=== PATIENT | female | born 1930 | race Caucasian/White ===

== ENCOUNTER 2017-11-06 15:00 | Observation (INO) ==
[2017-11-06 16:20] LABS: Basophils % 0.7 %; Eosinophils # 0.8 K/mcL (0.0-0.6); Eosinophils % 14.8 %; Hematocrit 39.8 % (35.3-44.9); Hemoglobin 12.9 g/dL (11.5-15.4); Immature Granulocytes % 0.4 % (0-4); Lymphocytes % 17.8 %; Mean Corpuscular HGB Conc 32.4 g/dL (31.6-35.5); Mean Corpuscular Hemoglobin 30.8 pg (28.0-33.3); Mean Platelet Volume 11.4 fL (9.4-12.4); Monocytes # 0.8 K/mcL (0.0-1.3); Monocytes % 14.8 %; Neutrophils # 2.9 K/mcL (1.6-8.9); Platelet Count 175 K/mcL (140-400); Red Blood Count 4.19 M/mcL (3.82-4.97); Red Cell Distribution Width 12.2 % (11.5-14.5); Segmented Neutrophils % 51.5 %
[2017-11-06 16:40] LABS: BUN/Creatinine Ratio 25 (6-26); Blood Urea Nitrogen 18 mg/dL (8-23); Calcium 9.2 mg/dL (8.6-10.3); Carbon Dioxide 26 mEq/L (23-29); Chloride 101 mEq/L (98-107); Glucose 89 mg/dL (70-105); Osmolality,Calculated 283 (280-300); Potassium 4.2 mEq/L (3.5-5.1); Sodium 136 mEq/L (136-145); eGFR For African Americans > 60 (> 60); eGFR For Non-African Americans > 60 (> 60)
--- NOTE | 2017-11-06 18:47 | Emergency Department Note ---
Disposition Clinical Impression: CHF (congestive heart failure) Qualifiers: Heart failure type: unspecified Heart failure chronicity: acute Qualified Code( s): I50.9 - Heart failure, unspecified Disposition: Admitted As Inpatient Condition: Fair Referrals: Carolann Baker MD [Primary Care Provider] - Forms: ED Satisfaction Letter Time of Disposition: 18:56 Extremity Problem HPI - General Chief complaint: ED Extremity Problem,Nontraumatic Stated complaint: Cellulitis Time Seen by Provider: 11/06/17 18:02 Source: patient Limitations: no limitations Nursing Notes Reviewed: Yes Vital Signs Reviewed: Yes - History of Present Illness HPI Narrative: Bilateral lower extremity edema last several weeks which is constant and was treated with Omnicef without adequate improvement the patient has no history of congestive heart failure. Does have orthopnea. Last echocardiogram several years ago. Patient does not have any chest pain or tightness or discomfort or pressure. Does have constant rhinorrhea nothing new. Some cough. No sneezing. No new blurred vision. No fevers. No blood in the urine or stool. No skin rash or bruising of the skin. Does have some pain bilateral lower extremities. Social history: No smoking or alcohol, is here with her niece who runs the cardiovascular service is here at [facility] Pain Scale: 7 - Related Data Home Medications Medication Instructions Recorded Confirmed Acetaminophen [Tylenol] 500 mg PO Q6HR PRN 04/23/17 05/22/17 Aspirin [Lo-Dose Aspirin EC] 81 mg PO DAILY 04/23/17 05/22/17 Atenolol [Tenormin] 25 mg PO DAILY 04/23/17 05/22/17 Cyanocobalamin (B-12) [Vitamin B12] 1,000 mcg PO DAILY 04/23/17 05/22/17 Furosemide [Lasix] 20 mg PO DAILY 04/23/17 05/22/17 Levothyroxine [Synthroid] 88 mcg PO DAILY 04/23/17 05/22/17 Lovastatin [Mevacor] 20 mg PO HS 04/23/17 05/22/17 Vit C/Vit E/Lutein/Min/[place]-3 1 each PO DAILY 04/23/17 05/22/17 [Ocuvite Softgel] amLODIPine [Norvasc] 5 mg PO DAILY 04/23/17 05/22/17 Allergies Allergy/AdvReac Type Severity Reaction Status Date / Time Amoxicillin [From Augmentin] Allergy Rash Verified 05/22/17 14:13 clavulanic acid Allergy Rash Verified 05/22/17 14:13 [From Augmentin] loratadine [From Claritin-D] Allergy See Verified 05/22/17 14:13 Comments pseudoephedrine Allergy See Verified 05/22/17 14:13 [From Claritin-D] Comments All systems ED: reviewed and negative except as stated. Review of Systems: As Per HPI Past Medical History - Past Medical History Medical history: Reports: arthritis, atrial fibrillation, GERD, hyperlipidemia, hypertension, peripheral artery disease, thyroid disease, TIA Surgical history: Reports: hysterectomy Psychiatric history: Reports: anxiety, depression - Social History Smoking Status: Never smoker Smokeless Tobacco Status: No Alcohol use: Reports: none Drug use: Reports: none Physical Exam CONSTITUTIONAL: Alert and oriented X3, well-nourished, well appearing, in no apparent distress HEAD: Normocephalic; atraumatic. EYES: PERRL, no scleral icterus. NOSE: The nose is normal in appearance without rhinorrhea RESP: Normal chest excursion with respiration; breath sounds With bibasilar crackles, apices are clear, no wheezing CARD: Regular rhythm, without murmurs, rub or gallop ABD: Non-distended; non-tender, soft,without rigidity, rebound or guarding SKIN: Normal for age and race; warm and dry; no apparent lesions extremities: Bilateral lower extremity edema 3+, pink lower extremities, symmetric, no crepitus or necrosis. Peripheral pulses are 1+ and equal bilaterally - General Limitations: no limitations General appearance: alert, in no apparent distress Course Vital Signs Temperature 97.8 F 11/06/17 15:08 Pulse Rate 62 11/06/17 15:08 Respiratory Rate 18 11/06/17 15:08 Blood Pressure 135/82 11/06/17 15:08 O2 Sat by Pulse Oximetry 95 11/06/17 15:08 Temperature 97.8 F 11/06/17 15:08 Pulse Rate 80 11/06/17 17:46 Respiratory Rate 18 11/06/17 15:08 Blood Pressure 156/82 11/06/17 17:46 O2 Sat by Pulse Oximetry 97 11/06/17 17:46 Oxygen Delivery Oxygen Delivery Room Air Extremity Problem, Nontraumati - MDM Narrative Medical decision making narrative: I did review the patient's labs which show an elevated BNP but it is only minimally elevated and the patient does have cardiomegaly but no peripheral edema. Clinically her findings are concerning for heart failure as she does have bibasilar crackles with lower extremity edema and does have orthopnea so the patient will be admitted. Inpatient echocardiogram is ordered. I did speak with the hospitalist who accepts the patient for admission. I did give her Lasix and nitroglycerin paste. Patient is comfortable with the admission plan. [id number] - Medical Records Medical records reviewed: Yes I reviewed the patient's medical records. - Lab Data Lab results reviewed: Yes I reviewed the patient's lab results. Result diagrams: 11/06/17 15:55 11/06/17 15:55 Lab Results 11/06/17 11/06/17 11/06/17 Range/Units 15:55 15:55 15:55 WBC 5.7 (4.3-11.1) K/mcL RBC 4.19 (3.82-4.97) M/mcL Hgb 12.9 (11.5-15.4) g/dL Hct 39.8 (35.3-44.9) % MCV 95.0 (83.0-100.0) fL MCH 30.8 (28.0-33.3) pg MCHC 32.4 (31.6-35.5) g/dL RDW 12.2 (11.5-14.5) % Plt Count 175 (140-400) K/mcL MPV 11.4 (9.4-12.4) fL Immature Gran % 0.4 (0-4) % Seg Neutrophils % 51.5 % Lymphocytes % 17.8 % Monocytes % 14.8 % Eosinophils % 14.8 % Basophils % 0.7 % Neutrophils # 2.9 (1.6-8.9) K/mcL Lymphocytes # 1.0 (0.6-4.6) K/mcL Monocytes # 0.8 (0.0-1.3) K/mcL Eosinophils # 0.8 H (0.0-0.6) K/mcL Basophils # 0.0 (0.0-0.2) K/mcL Sodium 136 (136-145) mEq/L Potassium 4.2 (3.5-5.1) mEq/L Chloride 101 (98-107) mEq/L Carbon Dioxide 26 (23-29) mEq/L BUN 18 (8-23) mg/dL Creatinine 0.73 (0.60-1.20) mg/dL Est GFR ( Amer) > 60 (> 60) Est GFR (Non-Af Amer) > 60 (> 60) BUN/Creatinine Ratio 25 (6-26) Glucose 89 (70-105) mg/dL Calculated Osmolality 283 (280-300) Calcium 9.2 (8.6-10.3) mg/dL B-Natriuretic Peptide 189 H (Less than 100) pg/mL - Radiology Data Radiology results reviewed: Yes I reviewed the patient's radiology results.
[2017-11-06] MEDS ORDERED: Furosemide 40 MG/4 ML VIAL IVP ONE (18:49)
[2017-11-06] MEDS ORDERED: Nitroglycerin 1 INCH/GM PACKET TP ONE (18:49)
[2017-11-06] MEDS ORDERED: Naloxone 0.4 MG/ML INJ IVP PRN (20:41)
[2017-11-06] MEDS ORDERED: *HR* OxyCODONE/APAP 7.5/325 TABLET PO PRN (20:46)
[2017-11-06] MEDS ORDERED: traMADol 50 MG TABLET PO PRN (20:46)
[2017-11-06] MEDS ORDERED: diazePAM 5 MG TABLET PO PRN (20:46)
--- NOTE | 2017-11-06 20:50 | Internal Med History&Physical ---
Date of Encounter: 11/07/17 Time of Encounter: 20:50 Assessment and Plan (1) CHF (congestive heart failure) Current visit: Yes Status: Acute 87/female Admitted with worsening peripheral edema Has some cough and shortness of breath. X-rays chest suggestive of CHF Plan: IV diuresis aggressively. Admit as inpatient. Monitor intake and output. Consider cardiology opinion if clinically does not improve. Qualifiers: Heart failure type: unspecified Heart failure chronicity: acute Qualified Code(s): I50.9 - Heart failure, unspecified (2) Hypertension Current visit: Yes Status: Acute At present very well controlled and we will continue the same medication Qualifiers: Hypertension type: essential hypertension Qualified Code(s): I10 - Essential (primary) hypertension (3) Hyperlipidemia Current visit: Yes Status: Acute Will continue present medication Qualifiers: Hyperlipidemia type: unspecified Qualified Code(s): E78.5 - Hyperlipidemia , unspecified (4) Atrial fibrillation Current visit: Yes Status: Acute Atrial fibrillation is chronic in nature. Rate control: Beta victor manuel Anticoagulation: Aspirin Qualifiers: Atrial fibrillation type: chronic Qualified Code(s): I48.2 - Chronic atrial fibrillation (5) DVT prophylaxis Current visit: Yes Status: Acute Heparin Medical decision-making: This patient has a moderate to severe risk of worsening in spite of being on appropriate medication to the underlying chronic comorbid conditions Internal Medicine - H&P: HPI Chief complaint: Swelling of roverto lower extremities. Admitted From: Emergency Dept Plans for Post Hospital Care: Home History of present illness: PCP: Dr Doris Cunningham. Cardiology : Dr Bird Brief PMH : Hypertension, dyslipidemia, coronary artery disease, peripheral arterial disease, atrial fibrillation, hypothyroidism, History of present medical illness: Patient has worsening of her lower extremity swelling for the past 3 weeks. Patient was evaluated by cardiology outpatient. Initially it was thought that possibility of her cellulitis is extremely high. She was treated with by mouth antibiotics. In spite of one week of antibiotics course patient's leg swelling did not improve and that is the reason she was brought to the hospital for further evaluation. Explained patient denies chest pain, nausea, vomiting, diarrhea, dizziness, abdominal pain and cough. Workup in the emergency room: Patient was evaluated in the emergency room basic labs were drawn. X-ray was done of the chest. Emergency room physician gave her 1 dose of Lasix. Noted that patient's BNP was elevated. Reason for admission: Intravenous loop diuretics and close observation and follow-up on electrolytes. Family history: Noncontributory Past Med Surg Social Fam HX - Past Medical History Medical history: arthritis, atrial fibrillation, GERD, hyperlipidemia, hypertension, peripheral artery disease, thyroid disease, TIA Psychiatric history: anxiety, depression - Past Surgical History Surgical History: hysterectomy - Social History Smoking Status: Never smoker Smokeless Tobacco Status: No Alcohol use: none Drug use: none Internal Medicine - H&P: Meds Aspirin [Lo-Dose Aspirin EC] 81 mg PO QAM 04/23/17 [History] Atenolol [Tenormin] 25 mg PO QAM 04/23/17 [History] Levothyroxine [Synthroid] 88 mcg PO QAM 04/23/17 [History] Lovastatin [Mevacor] 20 mg PO HS 04/23/17 [History] Vit C/Vit E/Lutein/Min/[place]-3 [Ocuvite Softgel] 1 each PO DAILY 04/23/17 [ History] Amlodipine Besylate/Benazepril [Lotrel 5-20 mg Capsule] 1 each PO QAM 11/06/17 [ History] Cefdinir [Omnicef] 300 mg PO BID 11/06/17 [History] Citalopram [CeleXA] 20 mg PO QAM 11/06/17 [History] Donepezil [Aricept] 10 mg PO HS 11/06/17 [History] Oxycodone HCl/Acetaminophen [Percocet 7.5-325 mg Tablet] 1 each PO Q6H PRN 11/06 [History] Polyethylene Glycol 3350 [MiraLAX] 8.5 - 17 gm PO DAILY PRN 11/06/17 [History] Tramadol HCl [Ultram] 50 mg PO Q6H PRN 11/06/17 [History] diazePAM [Valium] 5 mg PO HS PRN 11/06/17 [History] 3 Allergy/AdvReac Type Severity Reaction Status Date / Time Amoxicillin [From Augmentin] Allergy Rash Verified 05/22/17 14:13 clavulanic acid Allergy Rash Verified 05/22/17 14:13 [From Augmentin] loratadine [From Claritin-D] Allergy See Verified 05/22/17 14:13 Comments pseudoephedrine Allergy See Verified 05/22/17 14:13 [From Marleny-Dorcas] Comments All Systems PM: A 10-system review of systems was performed and is negative for pertinent findings except as documented above in the HPI. - Constitutional Constitutional: no chills, no fever(s), no night sweats - EENT Eyes: no change in vision, no discharge, no pain, no photophobia Ears: no ear discharge, no ear pain, no tinnitus Nose, mouth and throat: no dysphagia, no nasal discharge, no neck pain, no sore throat - Cardiovascular Cardiovascular ROS IM: diaphoresis, lightheadedness, palpitations, no chest pain , no dyspnea, no syncope - Respiratory Respiratory: dyspnea, wheezing, no cough, no excessive phlegm production - Gastrointestinal Gastrointestinal: no abdominal pain, no diarrhea, no hematemesis, no hematochezia, no melena, no nausea, no vomiting - Genitourinary Genitourinary: no change in urinary stream, no dysuria, no flank pain, no hematuria - Musculoskeletal Musculoskeletal ROS IM: no numbness, no tingling - Integumentary Integumentary IM: no rash, no unusual bruising - Neurological Neurological ROS: no confusion, no convulsions, no focal weakness, no numbness, no tingling, no tremor(s) - Hematologic/Lymphatic Hematologic/Lymphatic: no easy bruising - Constitutional Vitals: Temp Pulse Resp BP Pulse Ox 97.8 F 80 18 141/78 97 11/06/17 15:08 11/06/17 17:46 11/06/17 19:41 11/06/17 19:41 11/06/17 17:46 General appearance: Present: A&O X 3, pleasant, no acute distress, answers questions appropriately - Head Head exam: Present: atraumatic, normocephalic - Eye Eye exam: Present: PERRL, conjuntiva pink, sclera anicteric Pupils: Present: PERRL - Neck Neck exam general surgery: Present: supple, trachea midline. Absent: lymphadenopathy - Respiratory Respiratory exam: Present: CTAB. Absent: accessory muscle use, rales, rhonchi, wheezes - Cardiovascular Cardiovascular exam: Present: RRR, +S1, +S2. Absent: diastolic murmur, gallop, rubs, systolic murmur - GI/Abdominal GI/Abdominal exam: Present: normal bowel sounds, soft, no peritoneal signs. Absent: distended, tenderness - Extremities Exam Extremities exam: Present: warm, radial pulses palpable and symmetrical. Absent : calf tenderness, cyanotic, pedal edema - Neurological Exam Neurological exam: Present: CN II-XII intact, oriented X3, no focal deficits. Absent: pronater drift, facial droop, speech deficit - Skin Skin exam: Present: dry, intact Internal Med - H&P Results - Labs CBC & Chem 7: 11/07/17 03:28 11/06/17 15:55
[2017-11-06] MEDS: Furosemide 40 MG/4 ML VIAL IVP SCH (21:53)
[2017-11-06] MEDS: *HR* Heparin 5,000 UNIT/ML VIAL SQ SCH (23:38)
[2017-11-07 03:55] LABS: Basophils % 0.5 %; Eosinophils # 0.8 K/mcL (0.0-0.6); Eosinophils % 13.5 %; Hematocrit 38.3 % (35.3-44.9); Hemoglobin 12.8 g/dL (11.5-15.4); Immature Granulocytes % 0.3 % (0-4); Lymphocytes # 1.1 K/mcL (0.6-4.6); Lymphocytes % 19.1 %; Mean Corpuscular HGB Conc 33.4 g/dL (31.6-35.5); Mean Corpuscular Hemoglobin 30.8 pg (28.0-33.3); Mean Corpuscular Volume 92.3 fL (83.0-100.0); Mean Platelet Volume 11.4 fL (9.4-12.4); Monocytes % 17.4 %; Neutrophils # 2.9 K/mcL (1.6-8.9); Platelet Count 160 K/mcL (140-400); Red Blood Count 4.15 M/mcL (3.82-4.97); Red Cell Distribution Width 12.1 % (11.5-14.5); Segmented Neutrophils % 49.2 %
[2017-11-07 04:10] LABS: INR 1.2; Prothrombin Time 12.8 Seconds (9.4-12.1)
[2017-11-07 04:13] LABS: Activated Partial Thrombo Time 31.4 Seconds (26.0-36.0)
[2017-11-07 04:44] LABS: Alanine Aminotransferase 13 Units/L (7-52); Albumin 4.2 g/dL (3.5-5.7); Albumin/Globulin Ratio 1.6 (1.1-2.2); Alkaline Phosphatase 99 Units/L (34-104); Aspartate Amino Transferase 20 Units/L (13-39); BUN/Creatinine Ratio 19 (6-26); Bilirubin,Total 0.8 mg/dL (0.3-1.0); Blood Urea Nitrogen 13 mg/dL (8-23); Carbon Dioxide 30 mEq/L (23-29); Chloride 100 mEq/L (98-107); Chol/HDL Ratio 3.1 (0-4.9); Cholesterol 142 mg/dL (< 200); Globulin 2.7 g/dL (2.4-3.5); Glucose 93 mg/dL (70-105); HDL Cholesterol 46 mg/dL (40-59); LDL Cholesterol,Calculated 84 mg/dL (0-99); Magnesium 2.1 mg/dL (1.6-2.6); Osmolality,Calculated 290 (280-300); Phosphorous 3.9 mg/dL (2.7-4.5); Potassium 2.9 mEq/L (3.5-5.1); Sodium 140 mEq/L (136-145); Total Protein 6.9 g/dL (6.4-8.9); Triglycerides 62 mg/dL (< 150); eGFR For African Americans > 60 (> 60); eGFR For Non-African Americans > 60 (> 60)
[2017-11-07] MEDS ORDERED: Potassium Chloride Elixir 20 MEQ/15 ML UDC PO ONE ×2 (07:58→14:00)
--- NOTE | 2017-11-07 08:08 | Internal Med Progress Note ---
<Farrah Shen - Last Filed: 11/07/17 07:59> Date of Encounter: 11/07/17 Time of Encounter: 08:08 - Assessment and plan (1) CHF (congestive heart failure) Current Visit: Yes Status: Acute Assessment and plan: Patient arrived to the hospital with worsening lower extremity edema for 3 weeks. Chest x-ray showed cardiomegaly with haziness in costophrenic angles symptoms likely secondary to acute CHF patient has been net negative 1.3L past 24 hours. BNP 189 clinically improving. Plan: strict I/O PT/OT- patient states she has had multiple falls at home. IV lasix BID potassium replacement EV echo pending will likely transition to PO lasix tomorrow discharge planning pending PT/OT recs Qualifiers: Heart failure type: unspecified Heart failure chronicity: acute Qualified Code(s): I50.9 - Heart failure, unspecified (2) Hypertension Current Visit: Yes Status: Acute Assessment and plan: continue lisinopril, norvasc Qualifiers: Hypertension type: essential hypertension Qualified Code(s): I10 - Essential (primary) hypertension (3) Hypothyroidism Current Visit: Yes Status: Acute Assessment and plan: continue synthroid Qualifiers: Hypothyroidism type: unspecified Qualified Code(s): E03.9 - Hypothyroidism , unspecified (4) Hyperlipidemia Current Visit: Yes Status: Acute Assessment and plan: continue Qualifiers: Hyperlipidemia type: unspecified Qualified Code(s): E78.5 - Hyperlipidemia , unspecified (5) Atrial fibrillation Current Visit: Yes Status: Acute Assessment and plan: currently regular rate and rhythm, rate controlled continue beta victor manuel Qualifiers: Atrial fibrillation type: chronic Qualified Code(s): I48.2 - Chronic atrial fibrillation (6) DVT prophylaxis Current Visit: Yes Status: Acute Assessment and plan: heparin SQ - Subjective Interval history: 87-year-old female evaluated at bedside. She denies nausea, vomiting, diarrhea , fever, chills, chest pain, shortness of breath. She was very sleepy during examination. She lives by herself and reports that she has fallen at home multiple times. Denies any problems today. - Constitutional Vitals: Temp Pulse Resp BP Pulse Ox 97.7 F 60 18 112/62 92 11/07/17 05:00 11/07/17 05:00 11/07/17 05:00 11/07/17 05:00 11/07/17 05:00 General appearance: Present: A&O X 3, pleasant, no acute distress, answers questions appropriately - Head Head exam: Present: atraumatic, normocephalic - Neck Neck exam general surgery: Present: supple, trachea midline - Respiratory Additional comments: fine rales heard at left lower lung base - Cardiovascular Cardiovascular exam: Present: RRR, +S1, +S2 Additional comments: +1/6 systolic murmur present. - Extremities Exam Additional comments: +1 bilateral lower extremity pitting edema. - Neurological Exam Neurological exam: Present: alert, oriented X3, no focal deficits - Psychiatric Psychiatric exam: Present: normal affect, normal mood - Skin Additional comments: bilateral lower extremities erythematous Internal Medicine: Result - Labs CBC & Chem 7: 11/07/17 03:28 11/07/17 03:28 Labs: Short CBC 11/07/17 Range/Units 03:28 WBC 5.9 (4.3-11.1) K/mcL Hgb 12.8 (11.5-15.4) g/dL Hct 38.3 (35.3-44.9) % Plt Count 160 (140-400) K/mcL Neutrophils # 2.9 (1.6-8.9) K/mcL BMP 11/07/17 03:28 Sodium 140 Potassium 2.9 L D Chloride 100 Carbon Dioxide 30 H BUN 13 Creatinine 0.69 Glucose 93 Calcium 9.0 Cardiac Enzymes 11/06/17 11/07/17 Range/Units 21:09 03:32 Troponin I < 0.03 < 0.03 (< 0.04) ng/mL Liver Function 11/07/17 Range/Units 03:28 Total Bilirubin 0.8 (0.3-1.0) mg/dL AST 20 (13-39) Units/L ALT 13 (7-52) Units/L Alkaline Phosphatase 99 (34-104) Units/L Albumin 4.2 (3.5-5.7) g/dL - ABG Interpretation ABG results: PT/INR, D-dimer PT 12.8 Seconds (9.4-12.1) H 11/07/17 03:28 Consult Discharge Plan - Plan Referrals: Carolann Baker MD [Primary Care Provider] - <Vinnie Acevedo H - Last Filed: 11/07/17 14:52> Date of Encounter: 11/07/17 - Constitutional Vitals: Temp Pulse Resp BP Pulse Ox 98.1 F 60 18 121/67 100 11/07/17 13:00 11/07/17 13:00 11/07/17 13:00 11/07/17 13:00 11/07/17 13:00 Internal Medicine: Result - Labs CBC & Chem 7: 11/07/17 03:28 11/07/17 03:28 Labs: Short CBC 11/07/17 Range/Units 03:28 WBC 5.9 (4.3-11.1) K/mcL Hgb 12.8 (11.5-15.4) g/dL Hct 38.3 (35.3-44.9) % Plt Count 160 (140-400) K/mcL Neutrophils # 2.9 (1.6-8.9) K/mcL BMP 11/07/17 03:28 Sodium 140 Potassium 2.9 L D Chloride 100 Carbon Dioxide 30 H BUN 13 Creatinine 0.69 Glucose 93 Calcium 9.0 Cardiac Enzymes 11/06/17 11/07/17 11/07/17 Range/Units 21:09 03:32 09:24 Troponin I < 0.03 < 0.03 < 0.03 (< 0.04) ng/mL Liver Function 11/07/17 Range/Units 03:28 Total Bilirubin 0.8 (0.3-1.0) mg/dL AST 20 (13-39) Units/L ALT 13 (7-52) Units/L Alkaline Phosphatase 99 (34-104) Units/L Albumin 4.2 (3.5-5.7) g/dL - ABG Interpretation ABG results: PT/INR, D-dimer PT 12.8 Seconds (9.4-12.1) H 11/07/17 03:28 - Attending Attestation Severe leg extremity edema possibly secondary to diastolic CHF exacerbation, improving Continue Lasix Acute left lower extremity cellulitis The patient received 2 days of cefdinir without any improvement Start doxycycline IV I examined this patient and my medical decision-making was reviewed with the Resident Physician. I agree with the documented findings, disposition and treatment plan as described except to the extent set forth below.
[2017-11-07] MEDS: amLODIPine 5 MG TABLET PO SCH (08:26)
[2017-11-07] MEDS: *HR* Heparin 5,000 UNIT/ML VIAL SQ SCH ×3 (08:26→23:48)
[2017-11-07] MEDS: Furosemide 40 MG/4 ML VIAL IVP SCH ×2 (08:26→16:36)
[2017-11-07] MEDS: Aspirin Enteric Coated 81 MG Tablet PO SCH (08:26)
[2017-11-07] MEDS: Lisinopril 20 MG TABLET PO SCH (08:27)
[2017-11-07] MEDS ORDERED: Acetaminophen 325 MG TABLET PO PRN (14:57)
[2017-11-07] MEDS: Doxycycline 100 MG in 0.9 % Sodium Chloride Mini Bag 100 ML IVPB SCH ×2 (15:10→16:35)
[2017-11-08] MEDS: Doxycycline 100 MG in 0.9 % Sodium Chloride Mini Bag 100 ML IVPB SCH ×2 (06:28→18:15)
[2017-11-08 08:02] LABS: BUN/Creatinine Ratio 22 (6-26); Blood Urea Nitrogen 17 mg/dL (8-23); Carbon Dioxide 30 mEq/L (23-29); Chloride 104 mEq/L (98-107); Glucose 93 mg/dL (70-105); Osmolality,Calculated 293 (280-300); Potassium 3.2 mEq/L (3.5-5.1); Sodium 141 mEq/L (136-145); eGFR For African Americans > 60 (> 60); eGFR For Non-African Americans > 60 (> 60)
[2017-11-08] MEDS: amLODIPine 5 MG TABLET PO SCH (09:49)
[2017-11-08] MEDS: Aspirin Enteric Coated 81 MG Tablet PO SCH (09:49)
[2017-11-08] MEDS: Furosemide 40 MG/4 ML VIAL IVP SCH ×2 (09:50→18:22)
[2017-11-08] MEDS: *HR* Heparin 5,000 UNIT/ML VIAL SQ SCH ×2 (09:50→16:03)
[2017-11-08] MEDS: Lisinopril 20 MG TABLET PO SCH (09:50)
[2017-11-08] MEDS ORDERED: Potassium Chloride Elixir 20 MEQ/15 ML UDC PO ONE ×2 (12:46→18:00)
--- NOTE | 2017-11-08 13:02 | Internal Med Progress Note ---
<Farrah Shen - Last Filed: 11/08/17 13:28> Date of Encounter: 11/08/17 Time of Encounter: 12:59 - Assessment and plan (1) CHF (congestive heart failure) Current Visit: Yes Status: Acute Assessment and plan: Patient arrived to the hospital with worsening lower extremity edema for 3 weeks. Chest x-ray showed cardiomegaly with haziness in costophrenic angles symptoms likely secondary to acute CHF patient has been net negative 1.3L past 24 hours. BNP 189 clinically improving. Plan: strict I/O PT/OT- patient states she has had multiple falls at home. IV lasix BID potassium replacement EV echo report discharge planning pending PT/OT recs Qualifiers: Heart failure type: unspecified Heart failure chronicity: acute Qualified Code(s): I50.9 - Heart failure, unspecified (2) Lower extremity cellulitis Current Visit: Yes Status: Acute Assessment and plan: doxycycline day 2 Qualifiers: Laterality: unspecified laterality Qualified Code(s): L03.119 - Cellulitis of unspecified part of limb (3) Hypertension Current Visit: Yes Status: Acute Assessment and plan: continue lisinopril, norvasc Qualifiers: Hypertension type: essential hypertension Qualified Code(s): I10 - Essential (primary) hypertension (4) Hypothyroidism Current Visit: Yes Status: Acute Assessment and plan: continue synthroid Qualifiers: Hypothyroidism type: unspecified Qualified Code(s): E03.9 - Hypothyroidism , unspecified (5) Hyperlipidemia Current Visit: Yes Status: Acute Qualifiers: Hyperlipidemia type: unspecified Qualified Code(s): E78.5 - Hyperlipidemia , unspecified (6) Atrial fibrillation Current Visit: Yes Status: Acute Assessment and plan: currently regular rate and rhythm, rate controlled continue beta victor manuel Qualifiers: Atrial fibrillation type: chronic Qualified Code(s): I48.2 - Chronic atrial fibrillation (7) DVT prophylaxis Current Visit: Yes Status: Acute Assessment and plan: heparin SQ - Subjective Interval history: 87-year-old female evaluated at bedside. She denies nausea, vomiting, diarrhea , fever, chills, chest pain, shortness of breath. she complains of lower extremity erythema and denies any further problems today. - Constitutional Vitals: Temp Pulse Resp BP Pulse Ox 97.7 F 60 18 119/64 97 11/08/17 11:09 11/08/17 11:09 11/08/17 11:09 11/08/17 11:09 11/08/17 11:09 General appearance: Present: A&O X 3, pleasant, no acute distress, answers questions appropriately - Head Head exam: Present: atraumatic, normocephalic - Neck Neck exam general surgery: Present: supple, trachea midline - Respiratory Respiratory exam: Present: CTAB - Cardiovascular Cardiovascular exam: Present: RRR, +S1, +S2 - GI/Abdominal GI/Abdominal exam: Present: normal bowel sounds, soft. Absent: distended, tenderness - Extremities Exam Additional comments: bilateral lower extremity swelling and erythema. +1 bilateral lower extremity edema. - Neurological Exam Neurological exam: Present: alert, oriented X3, no focal deficits - Psychiatric Psychiatric exam: Present: normal affect, normal mood Internal Medicine: Result - Labs CBC & Chem 7: 11/07/17 03:28 11/08/17 06:42 Labs: BMP 11/08/17 06:42 Sodium 141 Potassium 3.2 L Chloride 104 Carbon Dioxide 30 H BUN 17 Creatinine 0.76 Glucose 93 Calcium 9.0 - ABG Interpretation ABG results: PT/INR, D-dimer PT 12.8 Seconds (9.4-12.1) H 11/07/17 03:28 Consult Discharge Plan - Plan Referrals: Carolann Baker MD [Primary Care Provider] - <Vinnie Acevedo H - Last Filed: 11/08/17 13:29> Date of Encounter: 11/08/17 - Constitutional Vitals: Temp Pulse Resp BP Pulse Ox 97.7 F 60 18 119/64 97 11/08/17 11:09 11/08/17 11:09 11/08/17 11:09 11/08/17 11:09 11/08/17 11:09 Internal Medicine: Result - Labs CBC & Chem 7: 11/07/17 03:28 11/08/17 06:42 Labs: BMP 11/08/17 06:42 Sodium 141 Potassium 3.2 L Chloride 104 Carbon Dioxide 30 H BUN 17 Creatinine 0.76 Glucose 93 Calcium 9.0 - ABG Interpretation ABG results: PT/INR, D-dimer PT 12.8 Seconds (9.4-12.1) H 11/07/17 03:28 - Attending Attestation Severe leg extremity edema possibly secondary to diastolic CHF exacerbation, improving Continue Lasix, decrease dose down to 20 mg IV twice a day Acute left lower extremity cellulitis The patient received 2 days of cefdinir without any improvement Continue doxycycline IV I examined this patient and my medical decision-making was reviewed with the Resident Physician. I agree with the documented findings, disposition and treatment plan as described except to the extent set forth below.
[2017-11-08] MEDS ORDERED: Calamine/Zinc oxide Lotion 120 ML BOTTLE TP PRN (15:30)
[2017-11-09] MEDS: *HR* Heparin 5,000 UNIT/ML VIAL SQ SCH ×2 (00:57→08:04)
[2017-11-09] MEDS: Doxycycline 100 MG in 0.9 % Sodium Chloride Mini Bag 100 ML IVPB SCH (05:12)
[2017-11-09 05:57] LABS: BUN/Creatinine Ratio 29 (6-26); Blood Urea Nitrogen 25 mg/dL (8-23); Calcium 9.4 mg/dL (8.6-10.3); Carbon Dioxide 30 mEq/L (23-29); Chloride 103 mEq/L (98-107); Glucose 91 mg/dL (70-105); Osmolality,Calculated 294 (280-300); Potassium 3.7 mEq/L (3.5-5.1); Sodium 140 mEq/L (136-145); eGFR For African Americans > 60 (> 60); eGFR For Non-African Americans > 60 (> 60)
[2017-11-09 06:58] VITALS: BP 145/81
[2017-11-09] MEDS: Lisinopril 20 MG TABLET PO SCH (08:03)
[2017-11-09] MEDS: amLODIPine 5 MG TABLET PO SCH (08:03)
[2017-11-09] MEDS: Aspirin Enteric Coated 81 MG Tablet PO SCH (08:03)
[2017-11-09] MEDS: Furosemide 40 MG/4 ML VIAL IVP SCH (08:03)
[2017-11-09] MEDS ORDERED: Potassium Chloride Elixir 20 MEQ/15 ML UDC PO SCH (09:00)
--- NOTE | 2017-11-09 09:56 | Discharge Summary ---
<Paulo Lai - Last Filed: 11/09/17 09:53> Date of Encounter: 11/09/17 Time of Encounter: 09:53 - Discharge Diagnosis (1) CHF (congestive heart failure) Priority: Primary Status: Acute Qualifiers: Heart failure type: unspecified Heart failure chronicity: acute Qualified Code(s): I50.9 - Heart failure, unspecified (2) Lower extremity cellulitis Priority: Primary Status: Acute Qualifiers: Laterality: unspecified laterality Qualified Code(s): L03.119 - Cellulitis of unspecified part of limb (3) Hypertension Priority: Secondary Status: Acute Qualifiers: Hypertension type: essential hypertension Qualified Code(s): I10 - Essential (primary) hypertension (4) Hyperlipidemia Priority: Secondary Status: Acute Qualifiers: Hyperlipidemia type: unspecified Qualified Code(s): E78.5 - Hyperlipidemia , unspecified (5) Atrial fibrillation Priority: Secondary Status: Acute Qualifiers: Atrial fibrillation type: chronic Qualified Code(s): I48.2 - Chronic atrial fibrillation (6) Hypothyroidism Priority: Secondary Status: Acute Qualifiers: Hypothyroidism type: unspecified Qualified Code(s): E03.9 - Hypothyroidism , unspecified (7) DVT prophylaxis Priority: Secondary Status: Acute - Discharge Medications Prescriptions: Doxycycline 100 mg PO BID #10 capsule Furosemide [Lasix] 20 mg PO BID #60 tablet Potassium Chloride 10 meq PO DAILY #30 tab.er.prt Home Medications: Aspirin [Lo-Dose Aspirin EC] 81 mg PO QAM 04/23/17 [History] Atenolol [Tenormin] 25 mg PO QAM 04/23/17 [History] Levothyroxine [Synthroid] 88 mcg PO QAM 04/23/17 [History] Lovastatin [Mevacor] 20 mg PO HS 04/23/17 [History] Vit C/Vit E/Lutein/Min/[place]-3 [Ocuvite Softgel] 1 each PO DAILY 04/23/17 [ History] Amlodipine Besylate/Benazepril [Lotrel 5-20 mg Capsule] 1 each PO QAM 11/06/17 [ History] Citalopram [CeleXA] 20 mg PO QAM 11/06/17 [History] Donepezil [Aricept] 10 mg PO HS 11/06/17 [History] Oxycodone HCl/Acetaminophen [Percocet 7.5-325 mg Tablet] 1 each PO Q6H PRN 11/06 [History] Polyethylene Glycol 3350 [MiraLAX] 8.5 - 17 gm PO DAILY PRN 11/06/17 [History] Tramadol HCl [Ultram] 50 mg PO Q6H PRN 11/06/17 [History] diazePAM [Valium] 5 mg PO HS PRN 11/06/17 [History] Doxycycline 100 mg PO BID #10 capsule 11/09/17 [Rx] Furosemide [Lasix] 20 mg PO BID #60 tablet 11/09/17 [Rx] Potassium Chloride 10 meq PO DAILY #30 tab.er.prt 11/09/17 [Rx] Allergies/Adverse Reactions: 3 Allergy/AdvReac Type Severity Reaction Status Date / Time Amoxicillin [From Augmentin] Allergy Rash Verified 05/22/17 14:13 clavulanic acid Allergy Rash Verified 05/22/17 14:13 [From Augmentin] loratadine [From Claritin-D] Allergy See Verified 05/22/17 14:13 Comments pseudoephedrine Allergy See Verified 05/22/17 14:13 [From Claritin-D] Comments Procedures/tests Complete & Pending: Procedures Performed prior 72 hours Category Date Time Status EV venous imaging LE BI Routine Y 11/06/17 20:50 Completed Date of admission: 11/06/17 19:30 Primary care physician: Carolann Baker Consults: 11/06/17 20:48 Consult to Nutrition [CONS] Routine Comment: Consulting Provider: NUTRITION Reason for Dietary Consult: Diet Education 11/07/17 08:11 Consult to Occupational Therapy [CONS] Routine Comment: Evaluate, develop and implement POC Reason for Consult: falls at home Consult to Physical Therapy [CONS] Routine Comment: Evaluate, develop and implement POC Reason for Consult: falls at home. needs PT Discharging clinician: Paulo Lai Anticipated date of discharge: 11/09/17 - Patient Status Disposition: Transfer SNF Condition: Good Functional capacity at discharge: uses cane/walker Overall status at discharge: patient is progressing back to baseline - Discharge Instructions Instructions: Furosemide (By mouth), Doxycycline (By mouth), Potassium Chloride (By mouth), Heart Failure (DC), Atrial Fibrillation (DC), Cellulitis ( DC), Hypothyroidism (DC), Chronic Hypertension (DC) Follow Up With: Carolann Baker MD [Primary Care Provider] - Additional Instructions: Please follow up with her primary care provider at next available appointment. Please take all medications as prescribed. Continue the doxycycline for the left lower extremity cellulitis. Please take the Lasix and potassium as directed. - Diet and Activity Activity: increase activity as tolerated Diet: advance to your usual diet Interval History: Patient states that she is feeling better today and her legs are significantly improved. She states that she has gotten up and been able to note to the bathroom. Hospital course: Ms. Osman is a 87 year old female that was admitted to the hospital for swelling of bilateral lower extremities and possible cellulitis to left lower extremity. During her time in the hospital she was diuresed with Lasix and given antibiotics to treat the cellulitis. Patient also had an echocardiogram showed an ejection fraction of 60-65% with normal LV size and function. She had a venous Doppler of the lower extremities which showed no evidence for DVT. The patient states that her legs have significantly improved and the redness has decreased. The patient will be discharged back to the extended care facility of [facility]. Patient is stable and appropriate for discharge. The patient be discharged back to the extended care [facility] with diabetic therapy for treatment of the cellulitis. - Time Spent with Patient Total time spent providing and/or coordinating discharge services: Greater than 30 minutes Specific discharge activities: 40 - Constitutional Vitals: Temp Pulse Resp BP Pulse Ox 98.2 F 59 18 145/81 95 11/09/17 06:55 11/09/17 06:55 11/09/17 06:55 11/09/17 06:55 11/09/17 06:55 General appearance: Present: A&O X 3, pleasant, no acute distress, answers questions appropriately - Head Head exam: Present: atraumatic, normocephalic - Neck Neck exam general surgery: Present: full ROM, normal inspection, trachea midline - Respiratory Respiratory exam: Present: CTAB. Absent: accessory muscle use, rales, rhonchi, wheezes - Cardiovascular Cardiovascular exam: Present: RRR, +S1, +S2. Absent: diastolic murmur, gallop, rubs, systolic murmur - GI/Abdominal GI/Abdominal exam: Present: normal bowel sounds, soft, no peritoneal signs. Absent: distended, tenderness - Extremities Exam Extremities exam: Present: full ROM, pedal edema (Normal edema in bilateral lower extremities), warm. Absent: tenderness Additional comments: Patient has some mild erythema to the distal left lower extremity. - Neurological Exam Neurological exam: Present: alert, oriented X3, no focal deficits. Absent: facial droop, speech deficit - Psychiatric Psychiatric exam: Present: normal affect, normal mood - Skin Skin exam: Present: dry, erythema (Mild to the distal left lower extremity.), intact, warm <Vinnie Acevedo H - Last Filed: 11/09/17 10:26> Date of Encounter: 11/09/17 Procedures/tests Complete & Pending: Procedures Performed prior 72 hours Category Date Time Status EV venous imaging LE BI Routine Y 11/06/17 20:50 Completed Date of admission: 11/06/17 19:30 Primary care physician: Carolann Baker Consults: 11/06/17 20:48 Consult to Nutrition [CONS] Routine Comment: Consulting Provider: NUTRITION Reason for Dietary Consult: Diet Education 11/07/17 08:11 Consult to Occupational Therapy [CONS] Routine Comment: Evaluate, develop and implement POC Reason for Consult: falls at home Consult to Physical Therapy [CONS] Routine Comment: Evaluate, develop and implement POC Reason for Consult: falls at home. needs PT Hospital course: Ms. Osman is a 87 year old female - Time Spent with Patient Total time spent providing and/or coordinating discharge services: - Constitutional Vitals: Temp Pulse Resp BP Pulse Ox 98.2 F 59 18 145/81 95 11/09/17 06:55 11/09/17 06:55 11/09/17 06:55 11/09/17 06:55 11/09/17 06:55 - Attending Attestation Severe leg extremity edema possibly secondary to diastolic CHF exacerbation Continue Lasix 20 mg twice a day Acute left lower extremity cellulitis The patient received 2 days of cefdinir without any improvement Continue doxycycline Physical Showed an ejection fraction of 60-65%, mild concentric left ventricular hypertrophy, indeterminate diastolic function, severely dilated left and right atrium. Moderate aortic regurgitation and moderate tricuspid Regurgitation and moderate to severe pulmonary hypertension. I examined this patient and my medical decision-making was reviewed with the Resident Physician. I agree with the documented findings, disposition and treatment plan as described except to the extent set forth below.
--- NOTE | 2017-11-09 10:18 | Physician Discharge Referral ---
<Paulo Lai - Last Filed: 11/09/17 10:16> ExtendedCare Referral Info Transfer To: [facility] Provider in Charge after Transfer: PCP Institutional Level of Care: Skilled - Diagnosis (1) CHF (congestive heart failure) Priority: Primary Status: Acute (2) Lower extremity cellulitis Priority: Primary Status: Acute (3) Hypertension Priority: Secondary Status: Acute (4) Hyperlipidemia Priority: Secondary Status: Acute (5) Atrial fibrillation Priority: Secondary Status: Acute (6) Hypothyroidism Priority: Secondary Status: Acute (7) DVT prophylaxis Priority: Secondary Status: Acute - Transfer Medications Prescriptions: Doxycycline 100 mg PO BID #10 capsule Furosemide [Lasix] 20 mg PO BID #60 tablet Potassium Chloride 10 meq PO DAILY #30 tab.er.prt Home Medications: Aspirin [Lo-Dose Aspirin EC] 81 mg PO QAM 04/23/17 [History] Atenolol [Tenormin] 25 mg PO QAM 04/23/17 [History] Levothyroxine [Synthroid] 88 mcg PO QAM 04/23/17 [History] Lovastatin [Mevacor] 20 mg PO HS 04/23/17 [History] Vit C/Vit E/Lutein/Min/[place]-3 [Ocuvite Softgel] 1 each PO DAILY 04/23/17 [ History] Amlodipine Besylate/Benazepril [Lotrel 5-20 mg Capsule] 1 each PO QAM 11/06/17 [ History] Citalopram [CeleXA] 20 mg PO QAM 11/06/17 [History] Donepezil [Aricept] 10 mg PO HS 11/06/17 [History] Oxycodone HCl/Acetaminophen [Percocet 7.5-325 mg Tablet] 1 each PO Q6H PRN 11/06 [History] Polyethylene Glycol 3350 [MiraLAX] 8.5 - 17 gm PO DAILY PRN 11/06/17 [History] Tramadol HCl [Ultram] 50 mg PO Q6H PRN 11/06/17 [History] diazePAM [Valium] 5 mg PO HS PRN 11/06/17 [History] Doxycycline 100 mg PO BID #10 capsule 11/09/17 [Rx] Furosemide [Lasix] 20 mg PO BID #60 tablet 11/09/17 [Rx] Potassium Chloride 10 meq PO DAILY #30 tab.er.prt 11/09/17 [Rx] Allergies/Adverse Reactions: 3 Allergy/AdvReac Type Severity Reaction Status Date / Time Amoxicillin [From Augmentin] Allergy Rash Verified 05/22/17 14:13 clavulanic acid Allergy Rash Verified 05/22/17 14:13 [From Augmentin] loratadine [From Claritin-D] Allergy See Verified 05/22/17 14:13 Comments pseudoephedrine Allergy See Verified 05/22/17 14:13 [From Claritin-D] Comments - Respiratory Orders Oxygen / L per min (2L PRN) Smoking Cessation: Smoking cessation has been advised. For more information, call the [facility] Consult Quit Line at 7-538-TXGH-NOW. - Ancillary Orders May use pressure relief devices daily prn - Advance Directives Code Status: Full Code - Mobility Orders Ambulate (With a cane and assistance) - Treatments Skin tear care topically daily PRN per policy, May check for fecal impaction rectally daily PRN, Fleet enema rectally every other day PRN cleansing purposes List/Other: Please follow up with her primary care provider at next available appointment. Please take all medications as prescribed. Continue the doxycycline for the left lower extremity cellulitis. Please take the Lasix and potassium as directed. - Diet Orders Cardiac CERTIFICATION: I certify that the transfer of the above named patient to an Extended Care Facility is necessary for the continuing treatment of the diagnosis listed. The above information is true and accurate reflection of patient's current condition. Confidential - Redisclosure prohibited without a patient's written consent. <Vinnie Acevedo H - Last Filed: 11/09/17 10:26> - Respiratory Orders Smoking Cessation: Smoking cessation has been advised. For more information, call the [facility] Consult Quit Line at 9-168-DTHG-NOW. CERTIFICATION: I certify that the transfer of the above named patient to an Extended Care Facility is necessary for the continuing treatment of the diagnosis listed. The above information is true and accurate reflection of patient's current condition. Confidential - Redisclosure prohibited without a patient's written consent.
--- NOTE | 2017-11-09 13:37 | Physician Discharge Referral ---
<Paulo Lai - Last Filed: 11/09/17 13:36> Home Health/Hosp Referral Info Transfer to: Home Health Provider in Charge Post Discharge: PCP - Diagnosis (1) CHF (congestive heart failure) Priority: Primary Status: Acute (2) Lower extremity cellulitis Priority: Primary Status: Acute (3) Hypertension Priority: Secondary Status: Acute (4) Hyperlipidemia Priority: Secondary Status: Acute (5) Atrial fibrillation Priority: Secondary Status: Acute (6) Hypothyroidism Priority: Secondary Status: Acute (7) DVT prophylaxis Priority: Secondary Status: Acute - Respiratory Orders Oxygen / L per min (2l prn) Smoking Cessation: Smoking cessation has been advised. For more information, call the [place] Tobacco Quit Line at 2-956-PKHR-NOW. - Diet/Nutrition Diet/Nutrition Orders: Cardiac - Activity Activity Orders: Ambulate (Assistance. With a cane) - Services Needed Following services are medically necessary services: Nursing, Home Health Aide, Physical Therapy, Occupational Therapy - Transfer Medications Prescriptions: Doxycycline 100 mg PO BID #10 capsule Furosemide [Lasix] 20 mg PO BID #60 tablet Potassium Chloride 10 meq PO DAILY #30 tab.er.prt Home Medications: Aspirin [Lo-Dose Aspirin EC] 81 mg PO QAM 04/23/17 [History] Atenolol [Tenormin] 25 mg PO QAM 04/23/17 [History] Levothyroxine [Synthroid] 88 mcg PO QAM 04/23/17 [History] Lovastatin [Mevacor] 20 mg PO HS 04/23/17 [History] Vit C/Vit E/Lutein/Min/[place]-3 [Ocuvite Softgel] 1 each PO DAILY 04/23/17 [ History] Amlodipine Besylate/Benazepril [Lotrel 5-20 mg Capsule] 1 each PO QAM 11/06/17 [ History] Citalopram [CeleXA] 20 mg PO QAM 11/06/17 [History] Donepezil [Aricept] 10 mg PO HS 11/06/17 [History] Oxycodone HCl/Acetaminophen [Percocet 7.5-325 mg Tablet] 1 each PO Q6H PRN 11/06 [History] Polyethylene Glycol 3350 [MiraLAX] 8.5 - 17 gm PO DAILY PRN 11/06/17 [History] Tramadol HCl [Ultram] 50 mg PO Q6H PRN 11/06/17 [History] diazePAM [Valium] 5 mg PO HS PRN 11/06/17 [History] Doxycycline 100 mg PO BID #10 capsule 11/09/17 [Rx] Furosemide [Lasix] 20 mg PO BID #60 tablet 11/09/17 [Rx] Potassium Chloride 10 meq PO DAILY #30 tab.er.prt 11/09/17 [Rx] Allergies/Adverse Reactions: 3 Allergy/AdvReac Type Severity Reaction Status Date / Time Amoxicillin [From Augmentin] Allergy Rash Verified 05/22/17 14:13 clavulanic acid Allergy Rash Verified 05/22/17 14:13 [From Augmentin] loratadine [From Claritin-D] Allergy See Verified 05/22/17 14:13 Comments pseudoephedrine Allergy See Verified 05/22/17 14:13 [From Claritin-D] Comments Certification: Further, I certify that my clinical findings support that this patient is homebound (i.e. absences from home require considerable and taxing effort and are for medical reasons or spiritism services or infrequently or short duration when for other reasons) because: Homebound Reason: Patient requires assistance of a person or device to safely leave home Attestation: My signature below is to certify that this patient is under my care and that I, or nurse practitioner, or a physician's market research assistant working with me, has a face-to -face encounter with this patient. <Vinnie Acevedo - Last Filed: 11/09/17 14:35> - Respiratory Orders Smoking Cessation: Smoking cessation has been advised. For more information, call the [place] Tobacco Quit Line at 5-306-VRDC-NOW. Certification: Further, I certify that my clinical findings support that this patient is homebound (i.e. absences from home require considerable and taxing effort and are for medical reasons or spiritism services or infrequently or short duration when for other reasons) because: Attestation: My signature below is to certify that this patient is under my care and that I, or nurse practitioner, or a physician's market research assistant working with me, has a face-to -face encounter with this patient.
== END 2017-11-09 15:55 | disposition home health service (06) ==
LOC: 2NENU 15:00 → EMEROO 15:00 → 2NENU 19:47
PROVIDERS: ADMIT Nurse Practitioner Family; ATTEND Internal Medicine